=== PATIENT | female | born 1965 | race Caucasian/White ===

== ENCOUNTER 2021-04-10 10:54 | Observation (INO) | payer OTHER ==
[2021-04-10 11:17] VITALS: BMI 33.6
[2021-04-10] MEDS ORDERED: SODIUM CHLORIDE 1,000 ML IV SCH (11:30)
[2021-04-10] MEDS ORDERED: SODIUM CHLORIDE 0.9% 500 ML INFUS.BAG IV ONE (13:26)
[2021-04-10 13:34] LABS: BASO % 0.3 % (0-2.0); EOS % 2.3 % (0-4.5); LYMPH % 28.8 % (8-40); MCH 33.6 pg (25.7-33.7); MCHC 35.1 g/dl (32.0-36.0); MEAN CELL VOLUME 95.7 fl (80-96); MEAN PLT VOLUME 7.8 fl (7.5-11.1); MONO % 4.6 % (3.8-10.2); PLATELET COUNT 271 10^3/uL (134-434); RBC 3.87 M/mm3 (3.60-5.2); RDW 13.7 % (11.6-15.6); WHITE BLOOD COUNT 6.4 K/mm3 (4.0-10.0)
[2021-04-10 13:54] LABS: INR 1.03 (0.83-1.09); PROTHROMBIN TIME (PATIENT) 12.4 SEC (9.7-13.0)
[2021-04-10 13:55] LABS: CHLORIDE 104 mmol/L (98-107); SODIUM 138 mmol/L (136-145)
[2021-04-10 13:57] LABS: ACTIVATED PTT 28.7 SECONDS (25.2-36.5)
[2021-04-10 13:59] LABS: ANION GAP 4 MMOL/L (8-16); CALCIUM 8.9 mg/dL (8.5-10.1); CO2 30 mmol/L (21-32)
[2021-04-10 14:00] LABS: ALBUMIN 3.7 g/dl (3.4-5.0); BLOOD UREA NITROGEN 12.7 mg/dL (7-18); GLUCOSE,RANDOM 113 mg/dL (74-106)
[2021-04-10 14:02] LABS: SGPT/ALT 26 U/L (13-61)
[2021-04-10 14:03] LABS: CHOLESTEROL 247 mg/dL (50-200); CREATININE 0.7 mg/dL (0.55-1.3); SGOT/AST 16 U/L (15-37); TRIGLYCERIDES 220 mg/dL (0-150)
[2021-04-10 14:04] LABS: BILIRUBIN,TOTAL 0.4 mg/dL (0.2-1); LDL CHOLESTEROL (ONLY SJRH) 156 mg/dL (5-100)
[2021-04-10 14:05] LABS: ALK PHOS 60 U/L (45-117); HDL CHOLESTEROL 44 mg/dL (40-60)
[2021-04-10 14:49] LABS: PH,URINE 7.5 (5.0-8.0); URINE APPEARANCE CLEAR; URINE BILIRUBIN NEGATIVE (NEGATIVE); URINE COLOR YELLOW; URINE GLUCOSE (UA) NEGATIVE (NEGATIVE); URINE KETONE NEGATIVE (NEGATIVE); URINE LEUK ESTERASE NEGATIVE (NEGATIVE); URINE NITRITE NEGATIVE (NEGATIVE); URINE PROTEIN NEGATIVE (NEGATIVE); URINE UROBILINOGEN 0.2 mg/dL (0.2-1.0)
[2021-04-10] MEDS ORDERED: ASPIRIN 81 MG CHEWABLE TABLETS PO ONE (16:16)
[2021-04-10] MEDS ORDERED: ASPIRIN 81 MG CHEWABLE TABLETS ONE (16:49)
[2021-04-10] MEDS ORDERED: ATORVASTATIN CA 80 MG TABLET (FP) PO SCH (22:00)
[2021-04-11] MEDS ORDERED: ASPIRIN 81 MG CHEWABLE TABLETS ONE (10:02)
[2021-04-11] MEDS ORDERED: PANTOPRAZOLE 20 MG TABLET PO ONE (10:03)
[2021-04-11 10:11] LABS: BASO % 0.3 % (0-2.0); EOS % 2.4 % (0-4.5); HEMATOCRIT 37.8 % (32.4-45.2); HEMOGLOBIN 13.4 GM/dL (10.7-15.3); MCHC 35.4 g/dl (32.0-36.0); MEAN PLT VOLUME 8.4 fl (7.5-11.1); MONO % 4.1 % (3.8-10.2); NEUT % 61.2 % (42.8-82.8); PLATELET COUNT 283 10^3/uL (134-434); RBC 3.94 M/mm3 (3.60-5.2); RDW 13.4 % (11.6-15.6); WHITE BLOOD COUNT 6.7 K/mm3 (4.0-10.0)
[2021-04-11 10:38] LABS: BLOOD UREA NITROGEN 12.8 mg/dL (7-18); CALCIUM 8.9 mg/dL (8.5-10.1)
[2021-04-11 10:39] LABS: MAGNESIUM 2.1 mg/dL (1.8-2.4)
[2021-04-11 10:42] LABS: CREATININE 0.7 mg/dL (0.55-1.3)
[2021-04-11] MEDS: ASPIRIN 81 MG CHEWABLE TABLETS PO SCH (10:47)
[2021-04-11] MEDS: PANTOPRAZOLE 20 MG TABLET PO SCH (10:47)
[2021-04-11] MEDS ORDERED: ATORVASTATIN CA 40 MG TABLET (FP) PO SCH (14:43)
[2021-04-11] MEDS ORDERED: ENOXAPARIN NA (PORCINE) 40 MG/0.4 ML DISP.SYRIN SQ ONE ×2 (16:11→18:02)
[2021-04-11] MEDS: ENOXAPARIN NA (PORCINE) 40 MG/0.4 ML DISP.SYRIN SQ SCH (18:11)
[2021-04-11] MEDS ORDERED: ATORVASTATIN CA 40 MG TABLET (FP) ONE (21:51)
[2021-04-12 07:04] LABS: HEMATOCRIT 37.4 % (32.4-45.2); HEMOGLOBIN 13.1 GM/dL (10.7-15.3); MCH 33.9 pg (25.7-33.7); MCHC 35.1 g/dl (32.0-36.0); MEAN CELL VOLUME 96.6 fl (80-96); MEAN PLT VOLUME 8.5 fl (7.5-11.1); PLATELET COUNT 265 10^3/uL (134-434); RBC 3.88 M/mm3 (3.60-5.2); RDW 13.4 % (11.6-15.6); WHITE BLOOD COUNT 7.2 K/mm3 (4.0-10.0)
[2021-04-12 07:22] LABS: ALBUMIN 3.6 g/dl (3.4-5.0); CALCIUM 8.6 mg/dL (8.5-10.1); MAGNESIUM 2.3 mg/dL (1.8-2.4)
[2021-04-12 07:25] LABS: CREATININE 0.7 mg/dL (0.55-1.3)
[2021-04-12 07:27] LABS: BILIRUBIN,TOTAL 0.4 mg/dL (0.2-1); TOT PROT 6.8 g/dl (6.4-8.2)
[2021-04-12] MEDS ORDERED: ASPIRIN 81 MG CHEWABLE TABLETS ONE (08:50)
[2021-04-12] MEDS ORDERED: PANTOPRAZOLE 20 MG TABLET PO ONE (08:50)
[2021-04-12] MEDS ORDERED: ENOXAPARIN NA (PORCINE) 40 MG/0.4 ML DISP.SYRIN SQ ONE (08:50)
[2021-04-12] MEDS ORDERED: ENOXAPARIN NA (PORCINE) 40 MG/0.4 ML DISP.SYRIN SQ SCH (10:00)
[2021-04-12] MEDS: ASPIRIN 81 MG CHEWABLE TABLETS PO SCH (10:16)
[2021-04-12] MEDS: PANTOPRAZOLE 20 MG TABLET PO SCH (10:16)
[2021-04-12] MEDS: ENOXAPARIN NA (PORCINE) 40 MG/0.4 ML DISP.SYRIN SQ SCH (10:16)
[2021-04-12 13:24] VITALS: BP 122/68; PULSE 83; TEMP 97.9
== END 2021-04-12 13:25 | disposition home or self-care (01) ==
LOC: JER 10:54 → UNDOADMOB 14:54 → JERBED 14:54 → INTOOBSV 14:54 → JERBED 15:20 → UNDODISOB 04-12 13:25
PROVIDERS: ADMIT Internal Medicine; ATTEND Internal Medicine
PROC: 3E0337Z Introduction of Electrolytic and Water Balance Substance into Peripheral Vein, Percutaneous Approach (ICD-10-PCS; principal; 2021-04-10)
DX: G45.9 Transient cerebral ischemic attack, unspecified (principal); R26.81 Unsteadiness on feet; E78.00 Pure hypercholesterolemia, unspecified; E66.8 Other obesity; Z68.33 Body mass index [BMI] 33.0-33.9, adult
CPT/HCPCS: 36415; 70450-TC; 71045-TC-FY; 80048; 80053; 80061; 81003; 82550; 83036; 83735; 84443; 84484; 85025; 85027; 85610; 85651; 85730; 86618; 86850; 86900; 86901; 93005; 93010; 93306-TC; 93880-TC; 99285-25; C9803; G0378; U0003; U0005